=== PATIENT | female | born 1990 | race African-American/Black ===

== ENCOUNTER 2020-04-16 02:50 | Emergency (ER) | payer MEDICAID ==
--- NOTE | 2020-04-16 06:12 | ER Document Report ---
ED General - General Chief Complaint: Chest Congestion Stated Complaint: SHORTNESS OF BREATH, SORE THROAT, HEADACHE Time Seen by Provider: 04/16/20 05:42 Primary Care Provider: DM NARVAEZ MD [Primary Care Provider] - Follow up as needed Mode of Arrival: Ambulatory Information source: Patient Notes: Patient presents to the ER for evaluation of coarse painful cough with chest congestion, sore throat, wheezing/chest tightness. Patient states she has been sick for 4 to 5 days. She has had numerous negative Covid swabs due to weekly testing. She denies fever. She denies nausea or vomiting. She denies shortness of breath. She denies abdominal pain. Nursing notes reviewed and past medical, social, and family histories reviewed and validated. TRAVEL OUTSIDE OF THE [place] IN LAST 30 DAYS: No - Related Data Allergies/Adverse Reactions: No Known Allergies Allergy (Unverified 04/16/20 03:15) Past Medical History - General Information source: Patient - Social History Smoking Status: Current Every Day Smoker Cigarette use (# per day): Yes - 1 pack Chew tobacco use (# tins/day): No Smoking Education Provided: Yes Frequency of alcohol use: Occasional Drug Abuse: None Lives with: Family Family History: Reviewed & Not Pertinent Patient has suicidal ideation: No Patient has homicidal ideation: No - Past Medical History Cardiac Medical History: Reports: None Pulmonary Medical History: Reports: None EENT Medical History: Reports: None Neurological Medical History: Reports: None Endocrine Medical History: Reports: None Renal/ Medical History: Reports: None Malignancy Medical History: Reports: None GI Medical History: Reports: None Musculoskeletal Medical History: Reports None Skin Medical History: Reports None Psychiatric Medical History: Reports: None Traumatic Medical History: Reports: None Infectious Medical History: Reports: None Past Surgical History: Reports: None - Immunizations Immunizations up to date: Yes Hx Diphtheria, Pertussis, Tetanus Vaccination: Yes Review of Systems - Review of Systems Notes: Constitutional: Negative for fever. HENT: Positive for sore throat. Eyes: Negative for visual changes. Cardiovascular: Negative for chest pain. Respiratory: Positive for cough. Negative for shortness of breath. Gastrointestinal: Negative for abdominal pain, vomiting or diarrhea. Genitourinary: Negative for dysuria. Musculoskeletal: Negative for back pain. Skin: Negative for rash. Neurological: Negative for headaches, weakness or numbness. 10 point ROS negative except as marked above and in HPI. Physical Exam - Vital signs Vitals: Temp Pulse Resp BP Pulse Ox 98.6 F 104 H 18 130/71 H 100 04/16/20 02:57 04/16/20 02:57 12 02:57 12 02:57 04/16/20 02:57 - Notes Notes: CONSTITUTIONAL: Well appearing. No acute distress. SKIN: Warm, dry, and intact without rash EYES: Extraocular movements are grossly intact, clear conjunctiva HENT: Normocephalic, atraumatic, moist mucus membranes. Bilateral nares are boggy and indurated clinics discharge. There is mild posterior pharyngeal erythema. NECK: No obvious swelling, normal range of motion PULMONARY: Normal chest rise and fall. Breath sounds clear and equal bilaterally. No respiratory distress or stridor CARDIOVASCULAR: Regular rate. No murmurs, rubs, gallops. Distal extremities are warm and well perfused. NEUROLOGIC: Normal speech, moves all extremities. MUSCULOSKELETAL: No gross deformities, atraumatic PSYCHIATRIC: Normal mood and affect Course - Re-evaluation Re-evalutation: 04/16/20 06:14 Rechecked patient who has responded well to treatment in the ER. Discussed with patient: results, diagnosis, treatment plan, and need for follow-up. Return to the emergency department warnings were given. All questions and concerns were addressed. The plan is agreed with and understood. Patient is stable and ready for discharge. - Vital Signs Vital signs: Temp Pulse Resp BP Pulse Ox 98.6 F 104 H 18 130/71 H 100 04/16/20 02:57 04/16/20 02:57 04/16/20 02:57 04/16/20 02:57 04/16/20 02:57 Discharge - Discharge Clinical Impression: Acute upper respiratory infection Condition: Stable Disposition: HOME, SELF-CARE Instructions: Bronchitis ([facility]) Prescriptions: Albuterol Sulfate [Proventil Hfa] 2 puff IH Q6HP PRN #1 inhaler PRN Reason: For Wheezing Prednisone 10 mg PO DAILY 6 Days #1 pkg Azithromycin [Zithromax 250 mg Tablet] 250 mg PO ASDIR PRN #6 tablet PRN Reason: Referrals: DM NARVAEZ MD [Primary Care Provider] - Follow up as needed
--- NOTE | 2020-04-16 06:13 | RADIOLOGY REPORT (SQ) ---
CHEST X-RAY 2 view on 04/16/2020 at 5:19 AM CLINICAL INDICATION: Shortness of breath COMPARISON: None FINDINGS: The lungs are clear. Cardiac, hilar and mediastinal contours are within normal limits. Pulmonary vascularity is within normal limits. No bony abnormality is noted. IMPRESSION: No active disease.
[2020-04-16 06:25] VITALS: BP 117/66
== END 2020-04-16 06:26 | disposition home or self-care (01) ==
LOC: ER 02:50
DX: J06.9 Acute upper respiratory infection, unspecified (principal); J02.9 Acute pharyngitis, unspecified; R05 Cough; R09.89 Other specified symptoms and signs involving the circulatory and respiratory systems; R07.89 Other chest pain; F17.210 Nicotine dependence, cigarettes, uncomplicated
CPT/HCPCS: 71046; 87070; 87077; 87880; 99284